=== PATIENT | male | born 1975 ===

== ENCOUNTER 2021-09-02 20:48 | Emergency (ER) | payer OTHER ==
[~2021-09-02] VITALS: Ht 152.4 cm; Wt 95.3 kg
[~2021-09-02 20:48] MED LIST: CIPRO500 MG PO; KETO10TA2 PO; TAMS0.4C PO
[2021-09-02] MEDS ORDERED: COZAAR50 MG PO (20:57)
[2021-09-03] MEDS ORDERED: TAMS0.4C PO (00:13)
[2021-09-03] MEDS ORDERED: CIPRO500 MG PO (00:13)
[2021-09-03] MEDS ORDERED: KETO10TA2 PO (00:13)
== END 2021-09-03 01:13 | disposition home or self-care (01) ==
LOC: ER 20:48
DX: N20.0 Calculus of kidney (principal); K76.0 Fatty (change of) liver, not elsewhere classified; I10 Essential (primary) hypertension